=== PATIENT | female | born 1960 | race Caucasian/White ===

== ENCOUNTER 2017-03-05 10:22 | Emergency (ER) | payer MEDICARE, MEDICAID ==
[2017-03-05 10:25] VITALS: BP 124/75
--- NOTE | 2017-03-05 11:05 | ED.ADGEN ---
Past History Past Medical History: No Pertinent History Adult General Chief Complaint Chief Complaint head injury, left great toenail injury HPI HPI Patient is a 56 year old female who presents with injuries after a fall. Patient tripped over a vacuum pattern cleaner hose this morning causing her to trip forward bumping her head and repeat her left great toenail. She denies loss of consciousness, no other injuries reported. No new back or neck pain. She denies headache, no blurry vision or focal weakness. She states her tetanus was updated 5 years ago. She thinks her left great toenail will come off as its lifted off of the toe. It is painful at the site. No blood thinners. Review of Systems Review of Systems Constitutional: Denies fever or chills [] Eyes: Denies change in visual acuity, redness, or eye pain [] HENT: Denies nasal congestion or sore throat [] Respiratory: Denies cough or shortness of breath [] Cardiovascular: Denies chest pain GI: Denies abdominal pain, nausea, vomiting, bloody stools or diarrhea [] : Denies dysuria or hematuria [] Musculoskeletal: Denies back pain or joint pain [] Integument: Denies rash Neurologic: Denies hfocal weakness or sensory changes [] Current Medications Current Medications Current Medications Medications (Trade) Dose Ordered Sig/Buddy Start Time Stop Time Status Last Admin Dose Admin Acetaminophen (Tylenol) 1,000 mg 1X ONCE 03/05/17 12:10 03/05/17 12:11 DC 03/05/17 11:54 1,000 MG Lidocaine/ Epinephrine (Xylocaine 1%-Epi 1:100,000) 20 ml 1X ONCE 03/05/17 11:30 03/05/17 11:31 DC 03/05/17 11:40 20 ML Allergies Allergies Allergies Coded Allergies Type Severity Reaction Last Updated Verified No Known Drug Allergies 03/05/17 No Physical Exam Physical Exam Constitutional: Well developed, well nourished, no acute distress, non-toxic appearance. [] HENT: Normocephalic, small contusion left mid frontal forehead, skin intact, otherwise head and scalp is atraumatic without bogginess, bilateral external ears normal, oropharynx moist, no oral exudates, nose normal. [] Eyes: PERRLA, EOMI, conjunctiva normal, no discharge. [] Neck: Normal range of motion, no midline stepoffs or tenderness, supple, no stridor. [] Cardiovascular:Heart rate regular with regular rhythm, no murmur [] Lungs & Thorax: Bilateral breath sounds clear to auscultation [] Abdomen: Soft, nontender, nondistended Skin: Warm, dry, no erythema, no rash. [] Back: No tenderness, no CVA tenderness. [] Extremities: Left great toe has a limited complete toenail still intact at the base, no bony tenderness of the toe, otherwise foot is nontender with wiggling of the toes, cap refill less than 3 seconds, DP pulse intact, other extremities nontender nondeformed Neurologic: Alert and oriented X 3, normal motor function, normal sensory function, no focal deficits noted. [] Psychologic: Affect normal, judgement normal, mood normal. [] Current Patient Data Vital Signs Vital Signs Date Time Temp Pulse Resp B/P Pulse Ox O2 Delivery O2 Flow Rate FiO2 03/05/17 10:25 98.1 88 18 95 Room Air EKG EKG [] Radiology/Procedures Radiology/Procedures CT head: CT of the head without contrast, 03/05/2017: History: Head injury There is mild cerebral atrophy. The ventricles are within normal limits in size. There is no shift of the midline structures. There is no evidence of acute intracranial hemorrhage or mass effect. There appears to be a small amount of fluid in the left sphenoid sinus. No skull fracture is identified. IMPRESSION: No acute intracranial abnormality is detected. Indication: avulsed left great toenail Procedure: The patient was placed in the appropriate position and anesthesia around the digital block with 1%lidocaine with epi . The laceration was 1 simple suture using 3-0 ethilon to tack down the toenail. Course & Med Decision Making Course & Med Decision Making Pertinent Labs and Imaging studies reviewed. (See chart for details) Tetanus not needed, Ct head neg. Tylenol given for headache. Toenail repaired. Suture to be removed in 10-12 days Final Impression Final Impression Head contusion left great toenail avulsion Problems: Dragon Disclaimer Dragon Disclaimer This electronic medical record was generated, in whole or in part, using a voice recognition dictation system. PARISH BAKER MD Mar 05, 2017 11:05
--- NOTE | 2017-03-05 11:19 | RAD ---
CT of the head without contrast, 03/05/2017: History: Head injury There is mild cerebral atrophy. The ventricles are within normal limits in size. There is no shift of the midline structures. There is no evidence of acute intracranial hemorrhage or mass effect. There appears to be a small amount of fluid in the left sphenoid sinus. No skull fracture is identified. IMPRESSION: No acute intracranial abnormality is detected. PQRS Compliance Statement: One or more of the following individualized dose reduction techniques were utilized for this examination: 1. Automated exposure control 2. Adjustment of the mA and/or kV according to patient size 3. Use of iterative reconstruction technique
[2017-03-05] MEDS ORDERED: LIDOCAINE 1%/EPI 1:100,000 20 ML VIAL. IJ ONE (11:30)
[2017-03-05] MEDS ORDERED: ACETAMINOPHEN 500 MG TABLET PO ONE (12:10)
== END 2017-03-05 12:00 | disposition home or self-care (01) ==
LOC: ER 10:22
DX: S00.93XA Contusion of unspecified part of head, initial encounter (principal); S91.212A Laceration without foreign body of left great toe with damage to nail, initial encounter; W18.09XA Striking against other object with subsequent fall, initial encounter; Y93.89 Activity, other specified; Y99.8 Other external cause status; Y92.89 Other specified places as the place of occurrence of the external cause
CPT/HCPCS: 70450; 99284-25

== ENCOUNTER 2017-03-27 15:03 | Emergency (ER) | payer MEDICARE, MEDICAID ==
[~2017-03-27] VITALS: Ht 160 cm; Wt 82.6 kg
[2017-03-27 15:03] VITALS: BP 103/62
[2017-03-27] MEDS ORDERED: TRIA80OI TP (15:43)
--- NOTE | 2017-03-27 15:43 | PHYS DOC ---
Past History Past Medical History: No Pertinent History, COPD, Diabetes Past Surgical History: Tonsillectomy, Tubal ligation Alcohol Use: None Drug Use: None Adult General Chief Complaint Chief Complaint: SKIN PROBLEM HPI HPI Patient is a 56-year-old female who complains of itchy hands and feet starting today. She also has some bumps on her hands and feet. She has no exposure that she knows of. She hasn't been doing any yard work. She's never had this before. The patient is diabetic. She takes metformin and does not monitor her blood sugars because it hurts too much to stick her fingers. She also has a history of anxiety and stress, takes medications for that. She moved to the area recently to help her aunt, because of a in the family. She does not have a PCP in this area. Review of Systems Review of Systems Constitutional: Denies fever or chills [] Respiratory: Denies cough or shortness of breath [] GI: Denies abdominal pain, nausea, vomiting, bloody stools or diarrhea [] Integument: As in history of present illness Allergies Allergies Allergies Coded Allergies Type Severity Reaction Last Updated Verified No Known Drug Allergies 03/05/17 No Physical Exam Physical Exam Constitutional: Well developed, well nourished, no acute distress, non-toxic appearance. Alert, mentating normally. HENT: Normocephalic, atraumatic, bilateral external ears normal, nose normal. [] Eyes: conjunctiva normal, no discharge. [] Neck: Normal range of motion, no stridor. [] Skin: Warm, dry, no erythema, no rash. [] Extremities: No tenderness, no cyanosis, no clubbing, ROM intact, no edema. Both hands and both feet exhibit generally dry skin with some areas of mild lichenification between the fingers. There are patchy areas of small papules, no vesicles. Appearance is consistent with eczema. Neurologic: Alert and oriented X 3, normal motor function, normal sensory function, no focal deficits noted. [] Current Patient Data Vital Signs Vital Signs Date Time Temp Pulse Resp B/P (MAP) Pulse Ox O2 Delivery O2 Flow Rate FiO2 03/27/17 15:03 98.3 100 20 94 Room Air EKG EKG [] Radiology/Procedures Radiology/Procedures [] Course & Med Decision Making Course & Med Decision Making Pertinent Labs and Imaging studies reviewed. (See chart for details) 56-year-old female with itching of both hands and both feet, her exam suggests eczema. I discussed this with the patient. We will give her triamcinolone ointment. [] Dragon Disclaimer Dragon Disclaimer This chart was dictated in whole or in part using Voice Recognition software in a busy, high-work load, and often noisy Emergency Department environment. It may contain unintended and wholly unrecognized errors or omissions. Departure Departure: Impression: Primary Impression: Eczema of both hands Disposition: HOME, SELF-CARE Condition: STABLE Referrals: NON,STAFF (PCP) Patient Instructions: Eczema Additional Instructions: Apply the steroid ointment and rubbed in well to all affected areas twice a day. Scripts Triamcinolone Acetonide (TRIAMCINOLONE ACETONIDE) 80 Gm Oint...g. 80 GM TP BID for eczema for 10 Days, [facility] Prov: SHAKILA SWENSON MD 03/27/17 SHAKILA SWENSON MD March 27, 2017 15:43
== END 2017-03-27 16:00 | disposition home or self-care (01) ==
LOC: ER 15:03
DX: L30.9 Dermatitis, unspecified (principal); J44.9 Chronic obstructive pulmonary disease, unspecified; E11.9 Type 2 diabetes mellitus without complications
CPT/HCPCS: 99283